=== PATIENT | female | born 1995 | race Caucasian/White ===

== ENCOUNTER 2019-05-06 12:15 | Emergency (ER) | payer OTHER ==
[~2019-05-06] VITALS: Ht 165.1 cm; Wt 114.4 kg
[2019-05-06 12:20] VITALS: Ht 165.1 cm; Wt 114.4 kg
--- NOTE | 2019-05-06 12:53 | ERD ---
ER Documentation Chief Complaint Chief Complaint clinic ref: 'no baby heartbt'. vomit, diar x2d. pelv cramp x3d. no VB. HPI 24-year-old female G2, P1 with LMP 03/15/2019, presents to the emergency department, referred by her PMD for ultrasound and blood work. The patient refers feeling better except for morning nausea. She denies vaginal bleeding or abdominal pain. ROS All systems reviewed and are negative except as per history of present illness. Medications Home Meds Active Scripts Pyridoxine HCl (Vitamin B6) (B-6) 200 Mg Tablet.er, 200 MG PO QHS PRN for NAUSEA, #30 TAB Prov:JASSI ANTHONY MD 05/06/19 Doxylamine Succinate (Nighttime Sleep-Aid) 25 Mg Tablet, 25 MG PO QHS PRN for NAUSEA, #30 TAB Prov:JASSI ANTHONY MD 05/06/19 Cephalexin* (Keflex*) 500 Mg Capsule, 500 MG PO QID for 7 Days, CAP Prov:JASSI ANTHONY MD 05/06/19 Allergies Allergies: Coded Allergies: No Known Allergy (Unverified , 05/06/19) Physical Exam Vitals Vital Signs Date Temp Pulse Resp B/P (MAP) Pulse Ox O2 O2 Flow FiO2 Time Delivery Rate 05/06/19 98.2 67 14 123/77 100 Room Air 14:16 (92) 05/06/19 98.1 90 18 133/63 99 12:20 (86) Physical Exam Const: No acute distress Head: Atraumatic Eyes: Normal Conjunctiva ENT: Normal External Ears, Nose and Mouth. Neck: Full range of motion. No meningismus. Resp: Clear to auscultation bilaterally Cardio: Regular rate and rhythm, no murmurs Abd: Soft, non tender, non distended. Normal bowel sounds Skin: No petechiae or rashes Back: No midline or flank tenderness Ext: No cyanosis, or edema Neur: Awake and alert Psych: Normal Mood and Affect Result Diagram: 05/06/19 1308 Results 24 hrs Laboratory Tests Test 05/06/19 13:08 White Blood Count 9.9 10^3/ul Red Blood Count 5.01 10^6/ul Hemoglobin 14.7 g/dl Hematocrit 43.4 % Mean Corpuscular Volume 86.6 fl Mean Corpuscular Hemoglobin 29.3 pg Mean Corpuscular Hemoglobin Concent 33.9 g/dl Red Cell Distribution Width 13.6 % Platelet Count 366 10^3/UL Mean Platelet Volume 10.1 fl Immature Granulocytes % 0.200 % Neutrophils % 64.4 % Lymphocytes % 23.2 % Monocytes % 10.4 % Eosinophils % 1.3 % Basophils % 0.5 % Nucleated Red Blood Cells % 0.0 /100WBC Immature Granulocytes # 0.020 10^3/ul Neutrophils # 6.4 10^3/ul Lymphocytes # 2.3 10^3/ul Monocytes # 1.0 10^3/ul Eosinophils # 0.1 10^3/ul Basophils # 0.1 10^3/ul Nucleated Red Blood Cells # 0.0 10^3/ul Urine Color YELLOW Urine Clarity SLIGHTLY CLOUDY Urine pH 5.0 Urine Specific [place] 1.017 Urine Ketones 1+ mg/dL Urine Nitrite NEGATIVE mg/dL Urine Bilirubin NEGATIVE mg/dL Urine Urobilinogen NEGATIVE mg/dL Urine Leukocyte Esterase 1+ Richard/ul Urine Microscopic RBC 1 /HPF Urine Microscopic WBC 2 /HPF Urine Squamous Epithelial Cells FEW /HPF Urine Bacteria FEW /HPF Urine Mucus MODERATE /HPF Urine Hemoglobin NEGATIVE mg/dL Urine Glucose NEGATIVE mg/dL Urine Total Protein NEGATIVE mg/dl Beta HCG, Quantitative 59352.0 mIU/ml Patient: MELISSA BERNAL : 1995 Age: 24 Sex: F MR #: [id number] DOS: 05/06/19 1252 Ordering MD: JASSI ANTHONY MD Location: [facility] Room/Bed: PROCEDURE: US Pelvis/OB. CLINICAL INDICATION: Vomiting TECHNIQUE: Multiple sonographic images of the pelvis were obtained utilizing a transabdominal technique. The images were reviewed on a PACS workstation. COMPARISON: None. FINDINGS: There is a small cystic structure within the endometrium measuring 0.9 cm which would correspond to a calculated gestational age of 5 weeks and 3 days. No pole or yolk sac is yet visualized. The right ovary is normal and measures 2.9 x 2.0 x 2.7 cm. There is Doppler flow in the right ovary. The left ovary was not seen.. No significant free fluid is present within the pelvis. RPTAT: AA IMPRESSION: Possible early intrauterine at 5 weeks and 3 days. No pole or yolk sac is yet visualized. Close followup ultrasound and hCG is recommended. Follow up endovaginal examination is recommended as well. Procedures/MDM Vital signs stable, Physical exam unremarkable. Differential diagnosis include but not limited to: UTI, threatening , incomplete versus complete , ectopic , physiologic implantation bleeding, molar . Physical examination and clinical presentation most likely consistent with early and acute cystitis. During the ED course the patient remained hemodynamically stable and asymptomatic. Results and clinical impression discussed with patient who agrees with management. The patient is stable to be treated outpatient and will be discharged home with close monitoring and follow-up in 2 days with her primary physician. Bed rest and pelvic rest recommended until further medical evaluation. The patient was instructed regarding the outcomes and the potential complications like severe bleeding and . If the patient presents severe bleeding or pain, she was instructed to return to the hospital immediately. Disclaimer: Inadvertent spelling and grammatical errors are likely due to EHR/dictation software use and do not reflect on the overall quality of patient care. Also, please note that the electronic time recorded on this note does not necessarily reflect the actual time of the patient encounter. Departure Diagnosis: Primary Impression: Early stage of Additional Impressions: UTI (urinary tract infection) Nausea and vomiting during Condition: Stable Additional Instructions: Thank you very much for allowing us to participate in your care. Your health and safety is our top priority at [facility]. The evaluation in the emergency department has been done to rule out an acute emergency. Chronic, [id number] conditions may have not been evaluated; therefore, you need to follow up with a primary care provider in the next 48h. If symptoms persist, worsen or new symptoms develop, then patient should return to the ED immediately. Call your primary care doctor TOMORROW for an appointment during the next 2-4 days and bring all the information provided. Have prescriptions filled and follow precisely the directions on the label. If the symptoms get worse and your provider is unavailable, return to the Emergency Department immediately. JASSI ANTHONY MD May 06, 2019 12:53
[2019-05-06] MEDS ORDERED: CEPH-443 PO (13:50)
[2019-05-06] MEDS ORDERED: DOXY25TA42 PO (13:50)
[2019-05-06] MEDS ORDERED: PYRI200T7 PO (13:51)
[2019-05-06 14:16] VITALS: BP 123/77; PULSE 67; RESP 14
== END 2019-05-06 14:20 | disposition home or self-care (01) ==
LOC: FTE 12:15
DX: O23.41 Unspecified infection of urinary tract in pregnancy, first trimester (principal); R10.2 Pelvic and perineal pain; Z3A.01 Less than 8 weeks gestation of pregnancy
CPT/HCPCS: 36415; 76801; 81001; 84702; 85025; Z7502

== ENCOUNTER 2019-05-11 18:52 | Emergency (ER) | payer OTHER ==
[~2019-05-11] VITALS: Ht 162.6 cm; Wt 114.0 kg
[~2019-05-11 18:52] MED LIST: CEPH-443 PO; DOXY25TA42 PO; PYRI200T7 PO
[2019-05-11 18:59] VITALS: Ht 162.6 cm; Wt 114.0 kg
[2019-05-11] MEDS ORDERED: SOD CHLORIDE 0.9% 1,000 ML IV ONE (20:30)
--- NOTE | 2019-05-11 20:40 | ERD ---
ER Documentation Chief Complaint Chief Complaint Pt reports possible yeast infection, vomiting x 3 days, AP HPI 24-year-old female currently 5 weeks per LMP, status post appendectomy with no reported past medical history who presents with complaint of nausea and vomiting, pelvic dullness. Had intermittent nausea with several episodes of vomiting over the past 3 days, unable to hold down much food or liquids. She is recently seen in his ED May 06 and found with UTI, prescribed Keflex which she is still on treatment with, had obstructed ultrasound which was within normal limits. Also describes white vaginal discharge over the past 3 days which has worsened. She otherwise denies fevers, chills, S pain, shortness of breath, dyspnea, vaginal bleeding, headache, dizziness. ROS All systems reviewed and are negative except as per history of present illness. Medications Home Meds Active Scripts Pyridoxine HCl (Vitamin B6) (B-6) 200 Mg Tablet.er, 200 MG PO QHS PRN for NAUSEA, #30 TAB Prov:JASSI ANTHONY MD 05/06/19 Doxylamine Succinate (Nighttime Sleep-Aid) 25 Mg Tablet, 25 MG PO QHS PRN for NAUSEA, #30 TAB Prov:JASSI ANTHONY MD 05/06/19 Cephalexin* (Keflex*) 500 Mg Capsule, 500 MG PO QID for 7 Days, CAP Prov:JASSI ANTHONY MD 05/06/19 Allergies Allergies: Coded Allergies: No Known Allergy (Unverified , 05/06/19) PMhx/Soc Medical and Surgical Hx: pt denies Medical Hx, pt denies Surgical Hx History of Surgery: No Anesthesia Reaction: No Hx Neurological Disorder: No Hx Respiratory Disorders: No Hx Cardiac Disorders: No Hx Psychiatric Problems: No Hx Miscellaneous Medical Probl: No Hx Alcohol Use: No Hx Substance Use: No Hx Tobacco Use: No Smoking Status: Never smoker FmHx Family History: No diabetes, No coronary disease, No other Physical Exam Vitals Vital Signs Date Temp Pulse Resp B/P (MAP) Pulse Ox O2 O2 Flow FiO2 Time Delivery Rate 05/11/19 99.0 71 24 119/63 98 18:59 (81) Physical Exam Const: No acute distress Head: Atraumatic Eyes: Normal Conjunctiva ENT: Normal External Ears, Nose and Mouth. Neck: Full range of motion. No meningismus. Resp: Clear to auscultation bilaterally Cardio: Regular rate and rhythm, no murmurs Abd: Soft, non tender, non distended. Normal bowel sounds Skin: No petechiae or rashes Back: No midline or flank tenderness Ext: No cyanosis, or edema Neur: Awake and alert Psych: Normal Mood and Affect Result Diagram: 05/11/19203905/11/192039 Results 24 hrs Laboratory Tests Test 05/11/19 20:40 White Blood Count 12.7 10^3/ul Red Blood Count 4.78 10^6/ul Hemoglobin 14.0 g/dl Hematocrit 41.6 % Mean Corpuscular Volume 87.0 fl Mean Corpuscular Hemoglobin 29.3 pg Mean Corpuscular Hemoglobin Concent 33.7 g/dl Red Cell Distribution Width 13.5 % Platelet Count 331 10^3/UL Mean Platelet Volume 10.3 fl Immature Granulocytes % 0.200 % Neutrophils % 68.0 % Lymphocytes % 21.5 % Monocytes % 9.2 % Eosinophils % 0.6 % Basophils % 0.5 % Nucleated Red Blood Cells % 0.0 /100WBC Immature Granulocytes # 0.030 10^3/ul Neutrophils # 8.7 10^3/ul Lymphocytes # 2.7 10^3/ul Monocytes # 1.2 10^3/ul Eosinophils # 0.1 10^3/ul Basophils # 0.1 10^3/ul Nucleated Red Blood Cells # 0.0 10^3/ul Sodium Level 138 mmol/L Potassium Level 3.5 mmol/L Chloride Level 102 mmol/L Carbon Dioxide Level 26 mmol/L Anion Gap 10 Blood Urea Nitrogen 5 mg/dl Creatinine 0.56 mg/dl Est Glomerular Filtrat Rate mL/min > 60 mL/min Glucose Level 96 mg/dl Calcium Level 9.8 mg/dl Total Bilirubin 0.5 mg/dl Direct Bilirubin 0.00 mg/dl Indirect Bilirubin 0.5 mg/dl Aspartate Amino Transf (AST/SGOT) 20 IU/L Alanine Aminotransferase (ALT/SGPT) 26 IU/L Alkaline Phosphatase 64 IU/L Total Protein 8.0 g/dl Albumin 4.3 g/dl Globulin 3.70 g/dl Albumin/Globulin Ratio 1.16 Lipase 38 U/L Beta HCG, Quantitative 88912.0 mIU/ml Current Medications Medications Dose Sig/Danni Start Time Status Last (Trade) Ordered Route PRN Stop Time Admin Dose Reason Admin Sodium 1,000 ml @ Q1H ONCE 05/11/19 DC 05/11/19 Chloride 1,000 mls/hr IV 20:30 20:33 05/11/19 21:29 Procedures/MDM 24-year-yo [id number] at _weeks gestational age by _LMP presenting with abdominal pain nausea and vomiting. Considered ectopic , spectrum of miscarriage/ (threatened, inevitable, incomplete, complete, septic) as well as causes of female-specific abdominal pain unrelated to (e.g., pelvic inflammatory disease with or without tubo-ovarian abscess, Qsab-Acsi-Yclmov, etc.). Also considered causes of abdominal pain that are not gender-specific (e.g., appendicitis, volvulus, small bowel obstruction, me senteric adenitis, acute cholecystitis/choledocholithiasis and other biliary pathology, etc.). Patient well-appearing with normal vital signs.. Gave patient strict return precautions for worsening pain, increased vaginal bleeding, fever (temperature above 100.4F), lightheadedness/syncope or other concerns. For consideration of ectopic , the quantitative beta hCG above 26,000 therefore was above/below the discriminatory zone of 1,500 mIU/mL. Transvaginal/transabdominal ultrasound demonstrated intrauterine . Patient will follow up in 48 hours with their professor of chemistry. ED course: Obstetrics ultrasound with live intrauterine , no other concerning findings, labs unremarkable, will discharge with instructions for symptomatic care and advised patient to follow-up with TECHNICAL DELIVERY MANAGER or normal PMD DISPOSITION PLAN: We discussed follow up with the patient's primary care doctor within 24 to 48 hours. Patient counseled regarding my diagnostic impression and care plan. Prior to discharge all questions answered. Pt agrees with treatment plan and understands strict return precautions. Precautionary instructions provided including instructions to return to the ER if not improving or for any worsening or changing symptoms or concerns. Disclaimer: Inadvertent spelling and grammatical errors are likely due to EHR/dictation software use and do not reflect on the overall quality of patient care. Also, please note that the electronic time recorded on this note does not necessarily reflect the actual time of the patient encounter. Departure Diagnosis: Primary Impression: Abdominal pain Condition: Stable Patient Instructions: Abdominal Pain, Early Referrals: COMMUNITY CLINICS YOU HAVE RECEIVED A MEDICAL SCREENING EXAM AND THE RESULTS INDICATE THAT YOU DO NOT HAVE A CONDITION THAT REQUIRES URGENT TREATMENT IN THE EMERGENCY DEPARTMENT. FURTHER EVALUATION AND TREATMENT OF YOUR CONDITION CAN WAIT UNTIL YOU ARE SEEN IN YOUR DOCTORS OFFICE WITHIN THE NEXT 1-2 DAYS. IT IS YOUR RESPONSIBILITY TO MAKE AN APPOINTMENT FOR FOLOW-UP CARE. IF YOU HAVE A PRIMARY DOCTOR --you should call your primary doctor and schedule an appointment IF YOU DO NOT HAVE A PRIMARY DOCTOR YOU CAN CALL OUR PHYSICIAN REFERRAL HOTLINE AT IF YOU CAN NOT AFFORD TO SEE A PHYSICIAN YOU CAN CHOSE FROM THE FOLLOWING FORMERLY [facility] [address] [facility] [facility] [address] [facility] [facility] [address] [facility] [facility] [address] [facility]. [facility] [address] [facility]. [facility] [address] Additional Instructions: Call your primary care doctor TOMORROW for an appointment during the next 2-3 days.See the doctor sooner or return here if your condition worsens before your appointment time. ODELL HERNANDEZ PA-C May 11, 2019 20:40
[2019-05-11 22:26] VITALS: BP 108/58; PULSE 70; RESP 18
== END 2019-05-11 22:28 | disposition home or self-care (01) ==
LOC: FTE 18:52
DX: O26.891 Other specified pregnancy related conditions, first trimester (principal); R10.9 Unspecified abdominal pain; R10.2 Pelvic and perineal pain; Z3A.01 Less than 8 weeks gestation of pregnancy
CPT/HCPCS: 36415; 76801; 76817; 80053; 83690; 84702; 85025; J7030; Z7502

== ENCOUNTER 2019-05-31 13:39 | Emergency (ER) | payer OTHER ==
[~2019-05-31] VITALS: Ht 162.6 cm; Wt 110.9 kg
[2019-05-31 13:56] VITALS: BP 114/59; PULSE 71; RESP 16; Ht 162.6 cm; Wt 110.9 kg
[2019-05-31] MEDS ORDERED: SOD CHLORIDE 0.9% 1,000 ML IV STA (14:11)
[2019-05-31] MEDS ORDERED: METOCLOPRAMIDE 10 MG INJ IV ONE (14:30)
--- NOTE | 2019-05-31 15:30 | ERD ---
ER Documentation Chief Complaint Chief Complaint sent by PCP for IV fluids, c/o nausea/vomit, is 9 weeks HPI 24-year-old female proximally 9 weeks is here sent by primary care to get IV fluids because she has nausea and vomiting. She also has dysuria and increased urinary frequency. No hematuria. No vaginal bleeding. She is tolerating oral intake. ROS All systems reviewed and are negative except as per history of present illness. Medications Home Meds Active Scripts Cephalexin* (Keflex*) 500 Mg Capsule, 500 MG PO TID for 5 Days, CAP Prov:KENN MEDRANO PA-C 05/31/19 Pyridoxine HCl (Vitamin B6) (B-6) 200 Mg Tablet.er, 200 MG PO QHS PRN for NAUSEA, #30 TAB Prov:JASSI ANTHONY MD 05/06/19 Doxylamine Succinate (Nighttime Sleep-Aid) 25 Mg Tablet, 25 MG PO QHS PRN for NAUSEA, #30 TAB Prov:JASSI ANTHONY MD 05/06/19 Cephalexin* (Keflex*) 500 Mg Capsule, 500 MG PO QID for 7 Days, CAP Prov:JASSI ANTHONY MD 05/06/19 Allergies Allergies: Coded Allergies: No Known Allergy (Unverified , 05/31/19) PMhx/Soc History of Surgery: No Anesthesia Reaction: No Hx Neurological Disorder: No Hx Respiratory Disorders: No Hx Cardiac Disorders: No Hx Psychiatric Problems: No Hx Miscellaneous Medical Probl: No Hx Alcohol Use: No Hx Substance Use: No Hx Tobacco Use: No Smoking Status: Never smoker FmHx Family History: No diabetes Physical Exam Vitals Vital Signs Date Temp Pulse Resp B/P (MAP) Pulse Ox O2 O2 Flow FiO2 Time Delivery Rate 05/31/19 99.0 71 16 114/59 97 13:56 (77) Physical Exam INITIAL VITAL SIGNS: Reviewed by me GENERAL: Awake, alert and oriented x 4, well appearing, nontoxic, speaking in full sentences. No acute distress RESPIRATORY: Clear to auscultation bilaterally. Symmetric chest wall rise. No wheezing or rales. No accessory muscle use. CV: Regular rate and rhythm. No murmurs, rubs, or gallops. ABDOMEN: Soft, non-distended. Nontender. Negative [place]. Negative [place] point tenderness. No CVA tenderness bilaterally. No guarding. No rebound. : Deffered. Result Diagram: 05/31/19 1420 05/31/19 1420 Results 24 hrs Laboratory Tests Test 05/31/19 14:20 White Blood Count 11.3 10^3/ul Red Blood Count 4.64 10^6/ul Hemoglobin 13.7 g/dl Hematocrit 40.9 % Mean Corpuscular Volume 88.1 fl Mean Corpuscular Hemoglobin 29.5 pg Mean Corpuscular Hemoglobin Concent 33.5 g/dl Red Cell Distribution Width 13.5 % Platelet Count 327 10^3/UL Mean Platelet Volume 10.2 fl Immature Granulocytes % 0.300 % Neutrophils % 70.3 % Lymphocytes % 17.5 % Monocytes % 10.9 % Eosinophils % 0.6 % Basophils % 0.4 % Nucleated Red Blood Cells % 0.0 /100WBC Immature Granulocytes # 0.030 10^3/ul Neutrophils # 8.0 10^3/ul Lymphocytes # 2.0 10^3/ul Monocytes # 1.2 10^3/ul Eosinophils # 0.1 10^3/ul Basophils # 0.1 10^3/ul Nucleated Red Blood Cells # 0.0 10^3/ul Urine Color [place] Urine Clarity SLIGHTLY CLOUDY Urine pH 5.0 Urine Specific [place] 1.033 Urine Ketones NEGATIVE mg/dL Urine Nitrite NEGATIVE mg/dL Urine Bilirubin NEGATIVE mg/dL Urine Urobilinogen 2+ mg/dL Urine Leukocyte Esterase 1+ Richard/ul Urine Microscopic RBC 2 /HPF Urine Microscopic WBC 4 /HPF Urine Squamous Epithelial Cells MODERATE /HPF Urine Mucus MANY /HPF Urine Hemoglobin NEGATIVE mg/dL Urine Glucose NEGATIVE mg/dL Urine Total Protein 1+ mg/dl Sodium Level 140 mmol/L Potassium Level 3.5 mmol/L Chloride Level 104 mmol/L Carbon Dioxide Level 27 mmol/L Anion Gap 9 Blood Urea Nitrogen 7 mg/dl Creatinine 0.56 mg/dl Est Glomerular Filtrat Rate mL/min > 60 mL/min Glucose Level 86 mg/dl Calcium Level 9.6 mg/dl Total Bilirubin 0.4 mg/dl Direct Bilirubin 0.00 mg/dl Indirect Bilirubin 0.4 mg/dl Aspartate Amino Transf (AST/SGOT) 37 IU/L Alanine Aminotransferase (ALT/SGPT) 77 IU/L Alkaline Phosphatase 86 IU/L Total Protein 7.8 g/dl Albumin 4.2 g/dl Globulin 3.60 g/dl Albumin/Globulin Ratio 1.16 Current Medications Medications Dose Sig/Danni Start Time Status Last (Trade) Ordered Route PRN Stop Time Admin Dose Reason Admin Sodium 1,000 ml @ Q1H STAT 05/31/19 DC 05/31/19 Chloride 1,000 mls/hr IV 14:11 14:27 05/31/19 15:10 10 mg ONCE ONCE 05/31/19 DC Metoclopramid IV 14:30 e HCl 05/31/19 14:31 (Reglan) Procedures/MDM Patient presents for nausea vomiting during . Ultrasound shows normal IUP 9 weeks 1 day. Urine is positive for UTI otherwise laboratory findings are unremarkable. Patient will be discharged with Keflex and given copies of all of her labs and ultrasound reports that she can follow-up with primary care. Patient counseled regarding my diagnostic impression and care plan. Prior to discharge all questions answered. Pt agrees with treatment plan and understands strict return precautions. Pt is instructed to follow up with primary care provider within 24-48 hours. Precautionary instructions provided including instructions to return to the ER if not improving or for any worsening or changing symptoms or concerns. Departure Diagnosis: Primary Impression: Cystitis during in first trimester, antepartum Condition: Stable Patient Instructions: Cystitis Additional Instructions: Call your primary care doctor TOMORROW for an appointment during the next 1-2 days.See the doctor sooner or return here if your condition worsens before your appointment time. KENN MEDRANO PA-C May 31, 2019 15:30
== END 2019-05-31 15:56 | disposition home or self-care (01) ==
LOC: FTE 13:39
DX: O23.11 Infections of bladder in pregnancy, first trimester (principal); Z3A.09 9 weeks gestation of pregnancy
CPT/HCPCS: 36415; 76801; 80053; 81001; 84702; 85025; 86900; 86901; 96360; J2765; J7030; Z7502